=== PATIENT | female | born 1975 | race Hispanic/Latino ===

== ENCOUNTER 2019-03-15 14:18 | Emergency (ER) | payer BC, OTHER ==
[2019-03-15 15:09] VITALS: RESP 16; TEMP 98; O2SAT 99
[2019-03-15 18:14] LABS: BLOOD UREA NITROGEN 13 mg/dl (7-17); CALCIUM 8.3 mg/dL (8.4-10.2); GFR NON-AFRICAN AMERICAN > 60
[2019-03-15 18:25] LABS: BASO % 0.5 % (0.0-2.0); EOS # 0.1 K/uL (0.0-0.7); EOS % 1.6 % (0.0-4.0); HEMOGLOBIN 11.9 g/dL (12.0-16.0); LYMPH # 2.4 K/uL (1.0-4.3); LYMPH % 48.2 % (20.0-40.0); MEAN CELL VOLUME 101.3 fl (81.0-99.0); MEAN CORPUSCULAR HEMOGLOBIN 34.4 pg (27.0-31.0); MEAN PLATELET VOLUME 11.6 fl (7.2-11.7); MONO # 0.5 K/uL (0.0-0.8); MONO % 10.2 % (0.0-10.0); NEUT # 1.9 K/uL (1.8-7.0); NEUT % 39.5 % (50.0-75.0); NRBC % 0.2 % (0.0-0.0); RBC 3.46 Mil/uL (3.80-5.20); RED CELL DISTRIBUTION WIDTH 13.5 % (11.5-14.5); WHITE BLOOD COUNT 4.9 K/uL (4.8-10.8)
--- NOTE | 2019-03-15 18:30 | ED PDOC ---
Upper Extremity Pain/Injury Time Seen by Provider: 03/15/19 17:13 Chief Complaint (Nursing): Upper Extremity Problem/Injury Chief Complaint (Provider): Neck pain, right arm pain History Per: Patient History/Exam Limitations: no limitations Additional Complaint(s): 43yo female, comes with complaints of 2 days of pain to her right neck, which radiates to her right arm. She initially felt "muscle tightening and tension" and shooting pain in her arm yesterday. She reports chest pain as well, and describes it at "heaviness" where she was "gasping for breath." She reports symptoms resolved while sitting upright, so she was able to sleep while sitting. She reports pain was continued today, prompting ER visit. No past medical history. Past Medical History Reviewed: Historical Data, Nursing Documentation, Vital Signs Vital Signs: Last Vital Signs Temp 98 F 03/15/19 15:08 Pulse 58 L 03/15/19 15:08 Resp 16 03/15/19 15:08 BP 116/83 03/15/19 15:08 Pulse Ox 99 03/15/19 15:08 Primary Care Provider: FAMILY PROVIDER,NO - Medical History PMH: No Chronic Diseases - Surgical History Surgical History: - Family History Family History: States: No Known Family Hx - Immunization History Hx Tetanus Toxoid Vaccination: (UTD as per patient) - Home Medications Home Medications: Ambulatory Orders Medication Instructions Recorded Acetaminophen with Codeine 1 tab PO Q6 PRN #20 tab 11/28/14 [Tylenol with Codeine No. 3 300 mg-30 mg] Cephalexin [Keflex] 500 mg PO QID #28 cap 11/28/14 Cyclobenzaprine [Cyclobenzaprine 10 mg PO Q8 #10 tab 03/15/19 HCl] Naproxen 500 mg PO BID #30 tab 03/15/19 - Allergies Allergies/Adverse Reactions: Allergies Allergy/AdvReac Type Severity Reaction Status Date / Time No Known Allergies Allergy Verified 03/15/19 15:07 Review of Systems ROS Statement: Except As Marked, All Systems Reviewed And Found Negative Cardiovascular: Positive for: Chest Pain Musculoskeletal: Positive for: Neck Pain (right), Arm Pain (right) Physical Exam - Reviewed Nursing Documentation Reviewed: Yes Vital Signs Reviewed: Yes - Physical Exam Appears: Positive for: Well, Non-toxic, No Acute Distress Head Exam: Positive for: ATRAUMATIC, NORMAL INSPECTION, NORMOCEPHALIC Skin: Positive for: Normal Color, Warm, DRY Eye Exam: Positive for: EOMI, Normal appearance, PERRL ENT: Positive for: Normal ENT Inspection Neck: Positive for: Normal, Painless ROM Cardiovascular/Chest: Positive for: Regular Rate, Rhythm Respiratory: Positive for: CNT, Normal Breath Sounds Gastrointestinal/Abdominal: Positive for: Normal Exam, Soft Back: Positive for: Normal Inspection Extremity: Positive for: Normal ROM (FROM of right arm). Negative for: Tenderness, Deformity Neurological/Psych: Positive for: Awake, Alert, Normal Tone - Laboratory Results Result Diagrams: 03/15/19 18:02 03/15/19 18:02 Lab Results: Troponin I < 0.0120 ng/mL (0.00-0.120) 03/15/19 18:02 - ECG O2 Sat by Pulse Oximetry: 99 (RA) Pulse Ox Interpretation: Normal Medical Decision Making Medical Decision Making: Workup for right radiculopahty Cardiac workup due to chest pain CXR, toradol and flexeril ordred 1830 Labs reviewed, no clinically significant abnormalities noted CXR reviewed, no active dsease Patient to be discharged home, labs and imaging results discussed. Patient informed to follow up with PMD in 2-3 days. Return precautions given. Scribe Attestation: Documented by Crystal Cheng acting as a scribe for Lynne Field MD. Provider Scribe Attestation: All medical record entries made by the Scribe were at my direction and personally dictated by me. I have reviewed the chart and agree that the record accurately reflects my personal performance of the history, physical exam, medical decision making, and the department course for this patient. I have also personally directed, reviewed, and agree with the discharge instructions and disposition. Disposition - Clinical Impression Clinical Impression: Radiculopathy, Chest pain - Disposition Disposition: Routine/Home Disposition Time: 18:30 Condition: IMPROVED Additional Instructions: Follow up with primary medical doctor. Take Flexeril and Naproxen as needed for neck pain. Do not drive or operate machinery if you have taken Flexeril as it will make you drowsy. Return to the emergency department immediately if you develop worsened pain or other new symptoms. Prescriptions: Cyclobenzaprine [Cyclobenzaprine HCl] 10 mg PO Q8 #10 tab Naproxen 500 mg PO BID #30 tab Instructions: Chest Pain That Is Not Caused by the Heart (DC), Radiculopathy (DC) Forms: [facility] (Vietnamese) Print Language: KHMER
--- NOTE | 2019-03-15 18:33 | RAD ---
HISTORY: cough COMPARISON: None available. TECHNIQUE: Chest PA and lateral, 2 views FINDINGS: LUNGS: No focal consolidation. Please note that chest x-ray has limited sensitivity for the detection of pulmonary masses. PLEURA: No significant pleural effusion identified. No definite pneumothorax . CARDIOVASCULAR: The cardiomediastinal silhouette appears within normal limits of size. No atherosclerotic calcification present. OSSEOUS STRUCTURES: No acute osseous abnormality identified. VISUALIZED UPPER ABDOMEN: Unremarkable. OTHER FINDINGS: None. IMPRESSION: No acute findings identified.
[2019-03-15 18:58] VITALS: BP 125/75; PULSE 76
--- NOTE | 2019-03-16 17:11 | CARD ---
APPROVED REPORT Date of service: 03/15/2019 EKG Measurement Heart [id number] <Conclusion> Sinus bradycardia Left axis deviation Low voltage QRS Incomplete right bundle branch block Abnormal ECG
== END 2019-03-15 18:35 | disposition home or self-care (01) ==
LOC: H.ER 14:18
DX: R07.9 Chest pain, unspecified (principal); M54.10 Radiculopathy, site unspecified
CPT/HCPCS: 71046; 80048; 81025; 84484; 85025; 93005; 96374; 99284; J1885